=== PATIENT | female | born 1940 | race Caucasian/White ===

== ENCOUNTER → 2017-04-01 | Outpatient (CLI) | payer MEDICARE ==
[2017-04-01 12:27] LABS: EKG EKG PERFORMED
[2017-04-01 12:56] LABS: Anion Gap 12 mmol/L; Blood Urea Nitrogen 14 mg/dL (7-17); Calcium 9.5 mg/dL (8.4-10.2); Carbon Dioxide 24 mmol/L (22-30); Chloride 105 mmol/L (98-107); Glucose 84 mg/dL (74-99); Non-African American GFR(MDRD) >60 (>60 ml/min/1.73 sqM); Potassium 4.4 mmol/L (3.5-5.1); Sodium 141 mmol/L (137-145)
[2017-04-01 13:00] LABS: Appearance,Urine Clear (Clear); Bilirubin,Urine Negative (Negative); Glucose,Urine (UA) Negative (Negative); Ketones,Urine Negative (Negative); Leukocyte Esterase,Urine Small (Negative); Mucus,Urine Rare /hpf; Nitrite,Urine Negative (Negative); Particle Count 717; Protein,Urine Negative (Negative); RBC,Urine 1 /hpf (0-5); Squamous Epithelial Cell,Urine 1 /hpf (0-4); UA Billing (MACRO vs. MICRO) MICRO; Urobilinogen,Urine <2.0 mg/dL (<2.0); WBC,Urine 5 /hpf (0-5)
[2017-04-01 13:03] LABS: Basophils % (A) 0 %; CH 30.2; Eosinophils # (A) 0.1 k/uL (0-0.7); Eosinophils % (A) 1 %; HCT 48.7 % (34.0-46.0); HDW 2.19; HGB 15.7 gm/dL (11.4-16.0); Luc # (Auto) 0.18; Luc % (Auto) 4; Lymphocytes # (A) 1.3 k/uL (1.0-4.8); Lymphocytes % (A) 24 %; MCH 30.4 pg (25.0-35.0); MCHC 32.2 g/dL (31.0-37.0); MCV 94.5 fL (80.0-100.0); Mean Platelet Volume 7.4; Monocytes # (A) 0.4 k/uL (0-1.0); Monocytes % (A) 7 %; Neutrophils # (A) 3.2 k/uL (1.3-7.7); Neutrophils % (A) 63 %; RBC 5.16 m/uL (3.80-5.40); RDW 13.7 % (11.5-15.5); WBC 5.1 k/uL (3.8-10.6); WBC (Perox) 5.01
[2017-04-01 13:09] LABS: INR 1.1 (<1.2); Partial Thromboplastin Time 24.2 sec (22.0-30.0); Prothrombin Time 10.6 sec (9.0-12.0)
--- NOTE | 2017-04-01 13:15 | XR ---
EXAMINATION TYPE: XR chest 2V DATE OF EXAM: 04/01/2017 COMPARISON: NONE HISTORY: Presurgical clearance. TECHNIQUE: Frontal and lateral views of the chest are obtained. FINDINGS: Pectus excavatum deformity creates partial obscuration of the right cardiophrenic angle. B ibasilar atelectasis is noted with no discrete pleural effusion. Pulmonary hyperinflation and flatten ing of the diaphragm relate to a degree of underlying pulmonary emphysema. Mild degenerative changes of the thoracic spine are present. There is no focal air space opacity, pleural effusion, or pneumoth orax seen. The cardiac silhouette size is within normal limits. The osseous structures are intact. IMPRESSION: 1. No focal consolidation. 2. Radiographic sequela of COPD. 3. Interval bibasilar subsegmental atelectasis.
== END | disposition home or self-care (01) ==
LOC: LABPAT 12:08
PROVIDERS: ATTEND Orthopaedic Surgery Orthopaedic Surgery of the Spine
DX: Z01.818 Encounter for other preprocedural examination (principal); Z01.810 Encounter for preprocedural cardiovascular examination; Z01.812 Encounter for preprocedural laboratory examination; M48.00 Spinal stenosis, site unspecified; Z79.01 Long term (current) use of anticoagulants
CPT/HCPCS: 36415; 71020; 80048; 81001; 85025; 85610; 85730; 86850; 86900; 86901; 93005

== ENCOUNTER → 2017-04-30 | Outpatient (CLI) | payer MEDICARE ==
[2017-04-30 10:45] LABS: Blood Urea Nitrogen 18 mg/dL (7-17); Non-African American GFR(MDRD) >60 (>60 ml/min/1.73 sqM)
--- NOTE | 2017-04-30 14:22 | CT ---
EXAMINATION TYPE: CT abdomen pelvis wo/w con DATE OF EXAM: 04/30/2017 COMPARISON: NONE HISTORY: 76-year-old female with Microhematuria TECHNIQUE: Contiguous axial scanning of the abdomen and pelvis before and after administration of 100 ml Omnipaque 300 IV contrast. Delayed images through the kidneys and coronal/sagittal reconstructio ns performed. CT DLP: 3205.70 mGycm Automated exposure control for dose reduction was used. FINDINGS: The heart is upper limits of normal in size without pericardial effusion. Coronary vessel calcificati ons are present and are a marker for coronary artery disease. Strandy areas of atelectasis or scarrin g at the lower lungs. No pleural effusion. Tiny hiatal hernia. Ectatic lower descending thoracic aorta at 2.9 cm. No focal liver lesion or bilia ry ductal dilatation. Portal venous system appears patent. Gallstone measures up to 2.3 cm. No abnormal gallbladder distention. Nodule within the left adrenal gland measures 1.4 cm but shows density on noncontrast series -0.1 Sanjuanita nsfield units compatible with a lipid rich adrenal adenoma. 1.6 cm hypodense lesion centrally in the posterior mid right kidney shows no significant enhancement suggestive of a cyst. Tiny subcentimeter hypodensity anterior left kidney too small for accurate CT c haracterization, probable tiny cyst, axial image 38. No nephrolithiasis or hydronephrosis. Moderate sized umbilical hernia containing omental fat. The hernia measures 7.4 cm wide by 6.6 cm aircraft structural fitter niocaudal by 6.6 cm AP dimension. There is mild fat stranding at the hernia neck with the abdominal w all defect measuring 2.4 cm wide. Spleen and pancreas appear within normal limits. No dilated small bowel, free fluid, or free air. No mesenteric or retroperitoneal lymphadenopathy. Th ere is mid to distal sigmoid diverticulosis without pericolonic inflammatory change. Bladder urine distended. Uterus surgically absent. Suspect visualization of small bilateral ovaries. No abnormal fluid collection in the pelvis or pelvic lymphadenopathy. Bones: Mild degenerative changes of the hips and SI joints. Additional degenerative changes throughout the v isualized spine and posterior fusion hardware at L2-L4 levels. Grade 1 spondylolisthesis from L1 thro ugh L5 levels. IMPRESSION: 1. NO NEPHROLITHIASIS OR HYDRONEPHROSIS. THERE IS A 1.6 CM CYST IN THE CENTRAL RIGHT KIDNEY. ADDITION AL SUBCENTIMETER HYPODENSITY IN THE LEFT KIDNEY IS TOO SMALL FOR ACCURATE CT CHARACTERIZATION BUT ALS O PROBABLY REPRESENTS A CYST. 2. MODERATE SIZED OMENTAL FAT-CONTAINING UMBILICAL HERNIA MEASURING UP TO 7.4 CM. THERE IS SOME STRAN DING AT THE HERNIA NECK THAT COULD REPRESENT MILD INFLAMMATION. CORRELATE FOR ANY PAIN HERE. 3. A 1.4 CM LEFT ADRENAL ADENOMA INCIDENTALLY SEEN. 4. MID TO DISTAL SIGMOID DIVERTICULOSIS AND CHOLELITHIASIS.
== END | disposition home or self-care (01) ==
LOC: RADCTMAIN 09:58
PROVIDERS: ATTEND Urology
DX: N28.1 Cyst of kidney, acquired (principal); K42.9 Umbilical hernia without obstruction or gangrene; K57.30 Diverticulosis of large intestine without perforation or abscess without bleeding; K80.20 Calculus of gallbladder without cholecystitis without obstruction
CPT/HCPCS: 82565; 84520; 74178; 36415; Q9967

== ENCOUNTER → 2018-03-24 | Outpatient (CLI) | payer MEDICARE ==
[2018-03-24 13:18] VITALS: BP 140/64; PULSE 80; RESP 16
--- NOTE | 2018-03-24 13:51 | P.CONS ---
History of Present Illness - Reason for Consult Consult date: 03/24/18 - Chief Complaint Lower back and left leg pain - History of Present Illness This is a pleasant 77-year-old lady with a chronic history of lower back pain and with the more recent left leg pain that started about one and a half years ago with no precipitating events. The pain is mostly on the posterior aspect of her left thigh and goes to the knee level and then she feels numbness in the lateral aspect of her left foot. This pain gets worse by moving and walking around and improves by lying down in bed. She also tried Neurontin previously which helped her pain slightly. She tried multiple injections in the back including transforaminal epidural steroid injection at the L5 level on the left side by Dr. Orta but this had not helped her pain. She denies any bowel or bladder dysfunction she does feel some weakness in her legs but this has been stable with no progression. She also denies any nocturnal pain or weight loss. She tried and failed to respond to physical therapy previously. She did have lumbar laminectomy previously. Review of Systems Eyes: denies blurred vision, denies pain Ears, nose, mouth and throat: Denies as per HPI, Denies ant. neck pain, Denies bleeding gums, Denies dental pain, Denies dysphagia, Denies epistaxis, Denies headache, Denies hoarseness, Denies mouth pain, Denies nasal congestion, Denies nasal discharge, Denies neck fullness/pressure, Denies neck lump, Denies nose pain, Denies odynophagia, Denies post-nasal drip, Denies sinus pain, Denies sinus pressure, Denies swelling in mouth, Denies swelling in throat, Denies sore throat, Denies vertigo, Denies voice changes Cardiovascular: Denies chest pain, Denies shortness of breath Respiratory: Reports wheezing Gastrointestinal: Denies abdominal pain, Denies diarrhea, Denies nausea, Denies vomiting Musculoskeletal: Reports as per HPI Neurological: Reports as per HPI Past Medical History Past Medical History: Asthma, COPD, Eye Disorder, Musculoskeletal Disorder, Osteoarthritis (OA), Skin Disorder Additional Past Medical History / Comment(s): GLAUCOMA, DETACHED RETINA RT EYE, BLIND NOW. ASTHMATIC BRONCHITIS. RASH UNDER BREASTS, ABD. LOW BACK PAIN, SPINAL STENOSIS, LT LEG PAIN W/ NT IN FOOT. VARICOSE VEINS. EDEMA IN BLE. FREQ UTI'S, ON PO AB UNTIL SURGERY. History of Any Multi-Drug Resistant Organisms: None Reported Past Surgical History: Bladder Surgery, Hysterectomy, Joint Replacement Additional Past Surgical History / Comment(s): BRADY TKA. CTR BRADY. EXC CATARACTS. RT EYE RETINAL SURGERY. Past Anesthesia/Blood Transfusion Reactions: No Reported Reaction Past Psychological History: No Psychological Hx Reported Smoking Status: Former smoker Past Alcohol Use History: Rare Additional Past Alcohol Use History / Comment(s): SMOKED 40 YEARS, 1 PPD, QUIT 1997. Past Drug Use History: None Reported - Past Family History Mother Family Medical History: Unable to Obtain Additional Family Medical History / Comment(s): SHE IS ADOPTED. Medications and Allergies Home Medications Medication Instructions Recorded Confirmed Type Budesonide-Formot 160-4.5 Mcg 2 puff INHALATION BID 04/02/17 04/10/17 History [Symbicort 160-4.5 Mcg Inhaler] Carboxymethylcellulose Sodium 1 drop BOTH EYES DAILY 04/02/17 04/10/17 History [Refresh Tears] Cholecalciferol (Vitamin D3) 2,000 unit PO DAILY 04/02/17 04/10/17 History [Vitamin D3] Cranberry Fruit Extract [Cranberry] 500 mg PO BID 04/02/17 04/10/17 History Cyanocobalamin (Vitamin B-12) 1,000 mcg PO DAILY 04/02/17 04/10/17 History [Vitamin B-12] Furosemide [Lasix] 20 mg PO DAILY 04/02/17 04/10/17 History Ipratropium/Albuterol Sulfate 1 puff INHALATION QID 04/02/17 04/10/17 History [Combivent Respimat Inhaler] Ketoconazole 2% Cream [Nizoral 2%] 1 applic TOPICAL DAILY 04/02/17 04/10/17 History Melatonin 5 mg PO HS 04/02/17 04/10/17 History Multivitamins, Thera [Multivitamin 1 tab PO DAILY 04/02/17 04/10/17 History (formulary)] Nabumetone [Relafen] 750 mg PO BID 04/02/17 04/10/17 History Britton-3 Fatty Acids [Britton-3] 1,200 mg PO BID 04/02/17 04/10/17 History Pyridoxine [Vitamin B-6] 50 mg PO DAILY 04/02/17 04/10/17 History Sulfamethox-Tmp 800-160Mg [Bactrim 1 tab PO DAILY 04/02/17 04/10/17 History DS 800-160 mg] Vitamin C/Biotin [Hair, Skin and 1 tab PO BID 04/02/17 04/10/17 History Nails] HYDROcodone/APAP 5-325MG [[place] 5] 1 each PO Q8HR PRN #90 tab 04/11/17 Rx Allergies Allergy/AdvReac Type Severity Reaction Status Date / Time No Known Allergies Allergy Verified 03/24/18 12:57 Physical Exam Vitals: Vital Signs Pulse Resp BP 03/24/18 13:00 80 16 140/64 Intake and Output 03/23/18 03/24/18 03/24/18 22:59 06:59 14:59 Other: Weight 102.965 kg - Constitutional General appearance: morbidly obese - EENT Eyes: PERRLA - Neck Neck: no lymphadenopathy - Respiratory Respiratory: bilateral: CTA - Cardiovascular Rhythm: regular Heart sounds: normal: S1, S2 - Neurologic Neuro exam of the lower extremities showed decreased but symmetrical muscle strength to 4 out of 5 bilaterally for knee flexion and extension ankle flexion and extension hip flexion, adduction and abduction. She also has normal and symmetrical deep tendon reflexes of the lower extremities. She has tenderness in the lumbar paravertebral area bilaterally. She has well-healed scar from her previous back surgery. Straight leg raising test negative bilaterally. Liborio's test negative bilaterally. She has tenderness around the right sacroiliac joint. Internal and external rotation of the hip joints did not elicit any pain. Neurologic: CNII-XII intact - Psychiatric Psychiatric: A&O x's 3, appropriate affect, intact judgment & insight Results Results: The lumbar spine MRI showed multilevel degenerative changes most prominent at L2 -L3 level with moderate to advanced facet degeneration and neural foraminal narrowing at the L2-3 level with encroachment on both L2 nerve roots. Assessment and Plan Plan: This is a pleasant 77-year-old female with the following diagnoses: Morbid obesity Failed back surgery syndrome Facet arthropathy Lumbar spondylosis without myelopathy Neuro foraminal stenosis at L2-L3 level Asthma/emphysema The patient tried and failed multiple injections and Dr. Orta's office and physical therapy, however she received transforaminal epidural steroid injection at the L5 level on the left side which is at a different level than the patient's pain. The patient feels her pain in the back of her left thigh and I think she might benefit from getting lumbar epidural steroid injection at L2-L3 level in the left paramedian approach or even transforaminal epidural steroid injection at this level. The procedure was explained to the patient and her questions were answered. I will resume Neurontin 300 mg 3 times a day I'll give her prescription for 90 pills with 1 refill because .she's been off of it for 4 weeks , I asked her to titrated up gradually starting with 1 pill a day and going up to 3 pills a day. I thank you for the referral.
== END ==
LOC: PNWHC3 12:50
PROVIDERS: ATTEND Anesthesiology
DX: M99.73 Connective tissue and disc stenosis of intervertebral foramina of lumbar region (principal); M47.816 Spondylosis without myelopathy or radiculopathy, lumbar region; M46.96 Unspecified inflammatory spondylopathy, lumbar region; M96.1 Postlaminectomy syndrome, not elsewhere classified; E66.01 Morbid (severe) obesity due to excess calories; J45.909 Unspecified asthma, uncomplicated; J43.9 Emphysema, unspecified; Z79.899 Other long term (current) drug therapy; Z79.891 Long term (current) use of opiate analgesic; Z79.2 Long term (current) use of antibiotics
CPT/HCPCS: 99211

== ENCOUNTER → 2018-04-08 | Day surgery (SDC) | payer MEDICARE ==
[2018-04-02 10:42] VITALS: BMI 38.9
[~2018-04-08] MED LIST: SODIUM CHLORIDE 0.9% 500 ML 500 ML IV SCH
[2018-04-08 07:03] VITALS: TEMP 98.1
--- NOTE | 2018-04-08 08:30 | P.PCN ---
Date of Procedure: 04/08/18 Procedure(s) Performed: PREOPERATIVE DIAGNOSIS: 1- Lumbar spinal stenosis 2-Lumbar spondylosis with Facet arthropathy without myelopathy POSTOPERATIVE DIAGNOSIS: 1-Lumber spinal stenosis 2-Lumbar spondylosis with Facet arthropathy without myelopathy PROCEDURE 1. Lumbar epidural steroid injection under fluoroscopic guidance at the L1-2 level. ( The plan was to do at L2-3 level , but I couldn't do it ,at that level because patient had lumbar laminectomy and fusion at that level ) 2. Lumbar epidurogram. ANESTHESIA: Local with 1% lidocaine 3 ml and , moderate sedation with intravenous Versed 1 mg ,and fentanyle 50 Mcg EBL: Minimal PROCEDURE INDICATION: The patient with low back pain and radiculitis symptoms unresponsive to conservative treatment. Fluoroscopy was used to optimize visualization of the needle placement and to maximize safety. PROCEDURE DESCRIPTION / TECHNIQUE: The patient was seen and identified in the preoperative area. Risks, benefits , complications including but not limited to infections ,bleeding ,allergic reaction to the medications ,nerve damage and not complete pain releife , and alternatives were discussed with the patient. The patient agreed to proceed with the procedure and signed the consent. IV was started, and vital signs were stable. Patient was taken to the OR and time out was completed. The patient was placed in the prone position on procedure table and a pillow was placed under the abdomen to reduce lumbar lordosis. The lumbosacral area was prepped and draped in the usual sterile fashion.ere closely monitored during the procedure. Conscious sedation was used during the procedure to decrease patients anxiety. Vital signs was monitered during the entire procedure. Using anterior-posterior fluoroscopy, the L5-S1 interlaminar space was identified and the skin over this site was marked and then infiltrated with 1% lidocaine subcutaneously. Subsequently, a 20-gauge Tuohy epidural needle was inserted and advanced toward the epidural space using the ``Loss of resistance technique and guided by AP and lateral fluoroscopy. The correct needle position in the epidural space was verified with the injection of 2 mL of the water soluble contrast dye Isovue 200 contrast and observing an excellent epidurogram with the epidural spread of the dye, after negative aspiration for blood and CSF and in the absence of paresthesias. Again after negative aspiration, a 6 ml mixture containing 80 mg of Depo-Medrole and 2 ml of preservative free Normal Saline, and 2 ml of preservative free lidocaine 1% solution was injected and a washout of epidurogram was seen. Needle was withdrawn intact, skin was cleansed, and bandages were applied. COMPLICATIONS: None DISPOSITION / PLANS: The patient was placed in a supine position and transferred to the recovery area in a stable condition for observation. There was no evidence of lower extremity motor or sensory deficit after the procedure. Patient was discharged from the recovery room after meeting discharge criteria. Home discharge instructions were given to the patient by the staff. The patient was reexamined prior to discharge. The patient will schedule a follow up in the clinic in 2-4 weeks. I recommend to do a left-sided transforaminal epidural steroid injection at L2 - 3 levels for the next time.
[2018-04-08 08:40] VITALS: RESP 18
[2018-04-08 08:56] VITALS: BP 155/65; PULSE 80
--- NOTE | 2018-04-08 09:48 | FL ---
EXAMINATION TYPE: FL guided pain mgmt statistic DATE OF EXAM: 04/08/2018 FLUOROSCOPY Fluoroscopy time of 12 seconds was used during lumbar epidural injection. 1 image/s document/s the p [email or web address].
== END ==
LOC: ORPAIN 06:43
PROVIDERS: ATTEND Specialist
DX: G89.29 Other chronic pain (principal); M48.061 Spinal stenosis, lumbar region without neurogenic claudication; M47.26 Other spondylosis with radiculopathy, lumbar region; J44.9 Chronic obstructive pulmonary disease, unspecified; M19.90 Unspecified osteoarthritis, unspecified site; H40.9 Unspecified glaucoma; H54.7 Unspecified visual loss; I83.90 Asymptomatic varicose veins of unspecified lower extremity; Z87.891 Personal history of nicotine dependence; Z79.2 Long term (current) use of antibiotics; Z79.84 Long term (current) use of oral hypoglycemic drugs; Z79.51 Long term (current) use of inhaled steroids; Z79.899 Other long term (current) drug therapy
CPT/HCPCS: 62323; J2250; J1030; J3010; Q9966; 99152

== ENCOUNTER 2018-04-24 09:36 | Day surgery (SDC) | payer MEDICARE ==
[2018-04-21 15:48] VITALS: BMI 38.6
[2018-04-24 10:47] VITALS: RESP 16
--- NOTE | 2018-04-24 11:37 | P.PCN ---
Date of Procedure: 04/24/18 Procedure(s) Performed: PREOPERATIVE DIAGNOSIS:1- Lumbar radiculopathy. 2-lumbar spondylosis with lumbar facet arthropathy. 3-lumbar degenerative disc disease POSTOPERATIVE DIAGNOSIS: Same as preoperative diagnoses. PROCEDURE 1. Transforaminal epidural steroid injection under fluoroscopic guidance at left L2-3 level. 2. Lumbar epidurogram : ANESTHESIA: Local with 1% lidocaine 3 ml , moderate sedation with intravenous Versed 1 mg and fentanyle 50 micrograms EBL: Minimal PROCEDURE INDICATION: The patient with low back pain and radiculopathy symptoms unresponsive to conservative treatment. PROCEDURE DESCRIPTION / TECHNIQUE: The patient was seen and identified in the preoperative area. Risks, benefits , complications, and alternatives were discussed with the patient. The patient agreed to proceed with the procedure and signed the consent. IV was started, and vital signs were stable. Patient was taken to the OR and time out was completed. The patient was placed in the prone position on procedure table and a pillow was placed under the abdomen to reduce lumbar lordosis. The lumbosacral area was prepped and draped in the usual sterile fashion. Critical pause was taken. Vital signs were closely monitored during the procedure. Conscious sedation was used during the procedure to decrease patient s anxiety. Using oblique fluoroscopy, the chin of the ``Poli dog at left L2-3 level was identified, and the skin and deeper tissues just below was localized with 1 % lidocaine. Subsequently, a 22-gauge 5-inch spinal needle was advanced under a tunneled view fluoroscopic guidance just underneath the chin of the ``Poli dog at the Left L2-3 . Under lateral fluoroscopy, the needle was then advanced to the posterior border of the left L2-3 interforaminal space. After negative aspiration of CSF and blood and with no paresthesias, 1 mL Isovue 200 contrast dye was injected excellent epidurogram and outlining of the nerve root Subsequently, 3 mL of block solution containing 40 mg Depo-medrol and 2 mL of Lidocaine 1% was injected.. At the end of the procedure, skin was cleansed, and bandages were applied. COMPLICATIONS:none DISPOSITION / PLANS: The patient was placed in a supine position and transferred to the recovery area in a stable condition for observation. There was no evidence of lower extremity motor or sensory deficit after the procedure. Patient was discharged from the recovery room after meeting discharge criteria. Home discharge instructions were given to the patient by the staff. The patient was reexamined prior to discharge.
[2018-04-24] MEDS ORDERED: IV FLUID CONTINUATION 1,000 ML IV ONE (11:40)
--- NOTE | 2018-04-24 11:56 | FL ---
Fluoroscopy INDICATION: Pain FINDINGS: Fluoroscopy time: 26 seconds. Images obtained: 1. IMPRESSIONS: 1. Documentation of fluoroscopy.
[2018-04-24 12:10] VITALS: BP 124/75; PULSE 87
== END 2018-04-24 12:17 | disposition home or self-care (01) ==
LOC: ORPAIN 09:36
PROVIDERS: ATTEND Specialist
DX: M51.16 Intervertebral disc disorders with radiculopathy, lumbar region (principal); M47.26 Other spondylosis with radiculopathy, lumbar region
CPT/HCPCS: 64483; J2250; J1030; J3010; Q9966; 99152

== ENCOUNTER → 2018-05-21 | Outpatient (CLI) | payer MEDICARE ==
--- NOTE | 2018-05-21 14:59 | P.PAINPG ---
Subjective Progress Note Date: 05/21/18 Principal diagnosis: left lumbar spondylosis. this is a very pleasant 77-year-old woman with a history of intractable low back pain who presents today for reevaluation. She recently underwent an L2-3 transforaminal epidural steroid injection. She says this afforded her mild relief of her pain for approximate 1 week. The pain has now returned. Her pain involves her left buttock and then posterior upper leg down to her knee. She describes as a throbbing pain. She also reports numbness and tingling in the lateral half of her left foot. She has had a transforaminal epidural steroid injections at L5-S1 previously recently did not afford her any benefit. Objective - Vital Signs Vital signs: Intake & Output 05/20/18 05/21/18 05/21/18 18:59 06:59 18:59 Weight 104.326 kg - Exam General: The patient is alert and oriented. Patient is not sedated Patient answers all question appropriately. Cardiac: Heart is regular in rate and rhythm Respiratory: Clear to auscultation. No audible wheezes. Abdomen: Soft nontender nondistended. Musculoskeletal: Strength is normal bilaterally. Sensation is normal bilaterally. Straight leg raise is negative bilaterally. She walks with an antalgic gait. She is unable to assume an erect position. Facet loading maneuvers are very positive on the left side. Neurological: Reflexes are preserved and symmetric bilaterally. Assessment and Plan (1) Spondylosis of lumbar region without myelopathy or radiculopathy Narrative/Plan: Plan of Care 1. Medications:the patient is not being prescribed any medications in our clinic. 2. Interventions:we will schedule the patient for a left lumbar medial branch nerve block at L4, L5, sacral ala and S1. 3. Referrals:patient was referred back to her primary care physician for discussion on weight loss. 4. Testing:none 5. Follow-up: left lumbar medial branch nerve block at L4, L5, sacral ala, S1. Current Visit: Yes Status: Acute Code(s): M47.816 - SPONDYLOSIS W/O MYELOPATHY OR RADICULOPATHY, LUMBAR REGION SNOMED Code(s): 37917467 (2) Spinal stenosis Current Visit: No Status: Acute Code(s): M48.00 - SPINAL STENOSIS, SITE UNSPECIFIED SNOMED Code(s): 17776268 PQRS Measure Charge Sheet Measure #130: Documentation of Current Meds in Medical Chart: Patient's medications documented in chart Measure #226: Tobacco Use: Screen & Cessation Intervention: Pt not a tobacco user Measure #111: Pneumonia Vaccination: Pneumococcal vaccine NOT administered or previously given Measure #47: Advance Care Plan: Advance care planning discussed & documented, pt chose/unable to give Measure #412: Opioid Treatment Agreement: No documentation of signed opioid treatment agreement Measure #408: Opioid Therapy Follow-up Evaluation: Patient had NO f/u eval minimum every 3 months during opioid therapy Measure #317: Preventitive Care & Scrn High Bld Press & F/U: Normal blood pressure, f/u not required Measure #128: Body Mass Index (BMI) Screening & Follow-up: BMI documented ABOVE normal parameters - f/u documented Measure #131: Pain Assessment & Follow-up: Pain positive & plan documented Measure #431: Unhealthy Alcohol Use Preventative Care & Scrn: Patient not identified as an unhealthy alcohol user PQRS Narrative: Smoking Status Former smoker Do You Want the Pneumonia Vaccine Up to Date Vaccine AT THIS TIME? Pain Intensity [Lower Back] 7 Scale Used Numeric (1 - 10) Hx Alcohol Use (MH) No Home Medications: Ambulatory Orders Budesonide-Formot 160-4.5 Mcg [Symbicort 160-4.5 Mcg Inhaler] 2 puff INHALATION BID 04/02/17 Carboxymethylcellulose Sodium [Refresh Tears] 1 drop BOTH EYES DAILY 04/02/17 Cholecalciferol (Vitamin D3) [Vitamin D3] 2,000 unit PO DAILY 04/02/17 Cranberry Fruit Extract [Cranberry] 500 mg PO BID 04/02/17 Cyanocobalamin (Vitamin B-12) [Vitamin B-12] 1,000 mcg PO DAILY 04/02/17 Furosemide [Lasix] 20 mg PO DAILY 04/02/17 Ipratropium/Albuterol Sulfate [Combivent Respimat Inhaler] 1 puff INHALATION QID 04/02/17 Ketoconazole 2% Cream [Nizoral 2%] 1 applic TOPICAL DAILY 04/02/17 Multivitamins, Thera [Multivitamin (formulary)] 1 tab PO DAILY 04/02/17 Nabumetone [Relafen] 750 mg PO BID 04/02/17 Williams-3 Fatty Acids [Williams-3] 1,200 mg PO BID 04/02/17 Pyridoxine [Vitamin B-6] 50 mg PO DAILY 04/02/17 Vitamin C/Biotin [Hair, Skin and Nails] 1 tab PO BID 04/02/17 Eye Lubricant Combination No.1 [Freshkote] 1 applic BOTH EYES DIRECTED Fluticasone Propionate [Flovent Diskus] 50 mcg INHALATION DIRECTED 03/24/18 Gabapentin [Neurontin] 300 mg PO TID 03/24/18 Controlled Substance Measures - Controlled Substance Measures Is patient prescribed a controlled substance at discharge?: No
== END ==
LOC: PNWHC3 14:23
PROVIDERS: ATTEND Pain Medicine Pain Medicine
DX: M48.00 Spinal stenosis, site unspecified (principal); M47.816 Spondylosis without myelopathy or radiculopathy, lumbar region; Z87.891 Personal history of nicotine dependence; Z79.899 Other long term (current) drug therapy
CPT/HCPCS: 99211

== ENCOUNTER 2018-06-04 08:36 | Day surgery (SDC) | payer MEDICARE ==
[2018-06-02 15:21] VITALS: BMI 39.4
[2018-06-04 09:22] VITALS: TEMP 97.6
--- NOTE | 2018-06-04 09:39 | P.PCN ---
Date of Procedure: 06/04/18 Preoperative Diagnosis: Lumbar spondylosis without myelopathy Postoperative Diagnosis: Same Procedure(s) Performed: Left lumbar medial branch block at L4 5 and L5-S1 Anesthesia: none Description of Procedure: Surgeon: Bev Monet MD. Procedure: Left lumbar medial branch block L4 5 L5-S1 no sedation The patient was seen and examined in the [facility]. Procedure risks and benefits were fully reviewed with the patient. The patient understands this is a diagnostic if local only is used, as will be the case today. The goal of the procedure is to inject medication into the medial branch or small nerves that go into the facet joints. In this way, we can hopefully identify which of these joints, if any, may be contributing to their pain. Informed consent for procedure was obtained. The patient was taken into the office fluoroscopy procedure room and placed prone on the table. A pillow was placed under the abdomen to reduce lumbar lordosis. Vital signs were closely monitored during the procedure. The skin over the area was prepped with Betadine X 3 and draped in usual sterile manner. Sterile technique was observed throughout procedure. Under biplanar fluoroscopic guidance, the target injection area of the L4, L5 and sacral ala bilateral were targeted. A 25 gauge 31/2 inch spinal needle was then placed at the most medial and superior aspect of the transverse process near the "eye of the Poli dog". Aspiration for blood was negative. 1 cc of 0.5% marcaine was injected into the targeted areas separately. Grover were withdrawn intact. No complications were noted during the procedure. The patient tolerated the procedure well. The patient was placed in supine position and transferred to the recovery area for observation and remained stable until discharged home. Home discharge instructions were given to the patient by the staff. The patient will schedule a follow up as directed if she has good relief from the test injection will repeat a second medial branch block. We discussed patient's potential for rhizotomy in the future.
[2018-06-04 10:19] VITALS: BP 137/84; PULSE 95; RESP 16
--- NOTE | 2018-06-04 10:49 | FL ---
EXAMINATION TYPE: FL guided pain mgmt statistic DATE OF EXAM: 06/04/2018 COMPARISON: NONE HISTORY: Fluoroscopy documentation for a left facet block TECHNIQUE: Fluoroscopy. FINDINGS/IMPRESSION: Fluoroscopic guidance was provided during procedure performed by Dr. Monet. A total of 7 seconds of fluoroscopic time was utilized during the procedure and 2 spot images was acq uired demonstrating localization of the lumbar spine.
== END 2018-06-04 10:19 | disposition home or self-care (01) ==
LOC: ORPAIN 08:36
PROVIDERS: ATTEND Hospitalist
DX: M47.816 Spondylosis without myelopathy or radiculopathy, lumbar region (principal)
CPT/HCPCS: 64493; 64494

== ENCOUNTER → 2018-08-12 | Outpatient (CLI) | payer MEDICARE ==
[2018-08-12 11:05] VITALS: BP 138/84; PULSE 89; RESP 16
--- NOTE | 2018-08-12 11:35 | P.PAINPG ---
Subjective Progress Note Date: 08/12/18 this is a very pleasant 77-year-old woman with a history of intractable low back pain who presents today for reevaluation. She recently underwent an L2-3 transforaminal epidural steroid injection. She says this afforded her mild relief of her pain for approximate 1 week. The pain has now returned. Her pain involves her left buttock and then posterior upper leg down to her knee. And later on ,we have Done Diagnostic Medial Branch Block Lumbar Area and she got excellent pain relief for short-term, the pain dropped from 4/10- to 0/10 Physical Examinations : -Constitutiona : Cooperative , not in acute distress . -HEENT : nech ; supple , no Lymphadenopathy , normal thyroid size . eyes : no ptosis , no icterus, no photophobia . - musculoskeltal : Lumber spine moter stegnth lower extremities ,thigh and legs 5/5 Right side , 5/5 Left side deep tendon reflexes : normal Knee Jerk , normal ankle Jerk positive lumber facet Loading Test Assessment and plan= lumbar spondylosis with lumbar facet arthropathy without myelopathy Lumbar spinal stenosis. Patient had no benefit from previous lumbar epidural steroid injection . Patient had a good result after the first diagnostic medial branch block lumbar area on the left side. Patient will be scheduled to have another diagnostic medial branch block left side L3 to S1 Objective - Vital Signs Vital signs: Vital Signs Temp Pulse 89 08/12/18 10:55 Resp 16 08/12/18 10:55 BP 138/84 08/12/18 10:55 Pulse Ox 92 L 08/12/18 10:55 Intake & Output 08/11/18 08/12/18 08/12/18 18:59 06:59 18:59 Weight 104.326 kg PQRS Measure Charge Sheet Measure #130: Documentation of Current Meds in Medical Chart: Patient's medications documented in chart Measure #226: Tobacco Use: Screen & Cessation Intervention: Pt not a tobacco user Measure #111: Pneumonia Vaccination: Pneumococcal vaccine administered or previously received Measure #47: Advance Care Plan: Advance care planning discussed & documented, pt chose/unable to give Measure #412: Opioid Treatment Agreement: No documentation of signed opioid treatment agreement Measure #408: Opioid Therapy Follow-up Evaluation: Patient had NO f/u eval minimum every 3 months during opioid therapy Measure #317: Preventitive Care & Scrn High Bld Press & F/U: Normal blood pressure, f/u not required Measure #128: Body Mass Index (BMI) Screening & Follow-up: BMI documented ABOVE normal parameters - f/u documented Measure #131: Pain Assessment & Follow-up: Pain positive & plan documented, Follow-up scheduled Measure #431: Unhealthy Alcohol Use Preventative Care & Scrn: Patient not identified as an unhealthy alcohol user PQRS Narrative: Smoking Status Former smoker Do You Want the Pneumonia Vaccine Up to Date Vaccine AT THIS TIME? Blood Pressure 138/84 Pain Intensity [Left Lower 2 Buttock] Scale Used Numeric (1 - 10) Hx Alcohol Use (MH) No Home Medications: Ambulatory Orders Budesonide-Formot 160-4.5 Mcg [Symbicort 160-4.5 Mcg Inhaler] 2 puff INHALATION BID 04/02/17 Carboxymethylcellulose Sodium [Refresh Tears] 1 drop BOTH EYES DAILY 04/02/17 Cholecalciferol (Vitamin D3) [Vitamin D3] 2,000 unit PO DAILY 04/02/17 Cranberry Fruit Extract [Cranberry] 500 mg PO BID 04/02/17 Cyanocobalamin (Vitamin B-12) [Vitamin B-12] 1,000 mcg PO DAILY 04/02/17 Furosemide [Lasix] 20 mg PO DAILY 04/02/17 Ipratropium/Albuterol Sulfate [Combivent Respimat Inhaler] 1 puff INHALATION QID 04/02/17 Ketoconazole 2% Cream [Nizoral 2%] 1 applic TOPICAL DAILY 04/02/17 Multivitamins, Thera [Multivitamin (formulary)] 1 tab PO DAILY 04/02/17 Nabumetone [Relafen] 750 mg PO BID 04/02/17 Neffs-3 Fatty Acids [Neffs-3] 1,200 mg PO BID 04/02/17 Pyridoxine [Vitamin B-6] 50 mg PO DAILY 04/02/17 Vitamin C/Biotin [Hair, Skin and Nails] 1 tab PO BID 04/02/17 Eye Lubricant Combination No.1 [Freshkote] 1 applic BOTH EYES DIRECTED Fluticasone Propionate [Flovent Diskus] 50 mcg INHALATION DIRECTED 03/24/18 Gabapentin [Neurontin] 300 mg PO TID 03/24/18 Controlled Substance Measures - Controlled Substance Measures Is patient prescribed a controlled substance at discharge?: No When asked, does pt state using other controlled substances?: No If prescribed controlled substance>3 days was MAPS reviewed?: No If Rx opioid, was Start Talking consent form obtained?: No If opioid is for acute pain is fill amount 7 days or less?: No Was information provided regarding opioid addiction?: No
== END | disposition home or self-care (01) ==
LOC: PNWHC3 10:40
PROVIDERS: ATTEND Specialist
DX: M48.061 Spinal stenosis, lumbar region without neurogenic claudication (principal); M47.816 Spondylosis without myelopathy or radiculopathy, lumbar region; M46.86 Other specified inflammatory spondylopathies, lumbar region; Z87.891 Personal history of nicotine dependence; Z79.899 Other long term (current) drug therapy
CPT/HCPCS: 99211

== ENCOUNTER 2018-08-26 07:19 | Day surgery (SDC) | payer MEDICARE ==
[2018-08-21 10:45] VITALS: BMI 39.4
[2018-08-26 08:01] VITALS: TEMP 97.9
[2018-08-26] MEDS ORDERED: LACTATED RINGERS 1,000 ML IV ONE (08:01)
--- NOTE | 2018-08-26 08:36 | P.PCN ---
Date of Procedure: 08/26/18 Surgeon: Rocky Webster Pathology: none sent Condition: stable Disposition: PACU Description of Procedure: PREOPERATIVE DIAGNOSIS : 1- Lumbar spondylosis with Facet Arthropathy without myelopathy . 2- Lumber degenerative disc disease3-PLPS POSTOPERATIVE DIAGNOSIS: 1- Lumbar spondylosis with Facet Arthropathy without myelopathy . 2- Lumber degenerative disc disease3-PLPS PROCEDURE: Diagnostic left L3 -4 , L4 -5 , and L5-S1 medial branch block under fluoroscopy ANESTHESIA: Local with 1% lidocaine; IV moderate conscious sedation with Versed 1 mg . EBL: Negligible COMPLICATION: None. PROCEDURE INDICATION: Chronic low back pain secondary to Facet arthropathy unresponsive to conservative treatment. PROCEDURE DESCRIPTION: the patient was seen and identified in the preop holding area , risks and benefits and possible complications of the procedure and alternatives were discussed with the patient, and the patient agreed to proceed with the procedure and signed the consent. IV was started and vital signs monitored during the procedure and fluoroscopy was used to maximize the benefit and accuracy of the needle placement, sedation was given to decrease patient anxiety, patient was taken to the procedure room and placed in prone position vital signs monitored. The patient was brought into the procedure room and placed in prone position. Skin was prepped with Chloraprep and draped in a sterile manner. Lidocaine 1% was used to numb the skin up at the target points that were chosen as follows: at the L5-S1 level which corresponds to the dorsal ramus of L5 the target points were at the superior medial aspect of the sacral ala on each side of the spine on the AP view of fluoroscopy, and for theL3 and L4 medial branches the target points were the connection between the transverse process and the superior to go process of L4 and L5 respectively on the oblique views of fluoroscopy. I used 22-gauge 3-1/2 inch Quincke spinal needles for this procedure and after contacting bone at the target points mentioned above I injected 1 mL of a mixture of Kenalog 40 mg +5 MLS of Marcaine 0.5% PF . Patient tolerated procedure well. At the end of the procedure the needles removed and a bandage applied after the skin was cleaned the cleaning solution. patient was then taken to the recovery room in stable condition and monitored in the recovery room for 20-30 minutes and discharged home in stable condition after discharge criteria met .
[2018-08-26] MEDS ORDERED: IV FLUID CONTINUATION 1,000 ML IV ONE (08:43)
[2018-08-26 09:04] VITALS: BP 126/78; PULSE 86; RESP 16
--- NOTE | 2018-08-26 09:05 | FL ---
EXAMINATION TYPE: FL guided pain mgmt statistic DATE OF EXAM: 08/26/2018 HISTORY: Flouroscopy time 4 seconds of fluoroscopy provided. IMPRESSION: 1. Fluoroscopy time.
== END 2018-08-26 09:17 | disposition home or self-care (01) ==
LOC: ORPAIN 07:19
PROVIDERS: ATTEND Anesthesiology
DX: G89.29 Other chronic pain (principal); M47.816 Spondylosis without myelopathy or radiculopathy, lumbar region; M51.36 Other intervertebral disc degeneration, lumbar region; G97.1 Other reaction to spinal and lumbar puncture; M48.061 Spinal stenosis, lumbar region without neurogenic claudication; Z79.51 Long term (current) use of inhaled steroids; Z79.899 Other long term (current) drug therapy
CPT/HCPCS: 64493; 64494; 64495; J2250; J3301

== ENCOUNTER → 2018-09-10 | Outpatient (CLI) | payer MEDICARE ==
[2018-09-10 14:44] VITALS: BP 137/72; PULSE 80; RESP 16
--- NOTE | 2018-09-10 15:07 | P.PN ---
Subjective Progress Note Date: 09/10/18 This is a 77-year-old lady with history of lower back pain with radiation to the left lower extremity. The patient states that her left leg is more painful than her lower back and that the first diagnostic medial branch block that she had in the lumbar spine helped her leg pain however the second one did not. The pain radiates down to the ankle and she feels numbness on the lateral aspect of her left foot. The patient denies taking any anticoagulants and she denies any history of diabetes. Today, pt denies new-onset weakness, bowel/bladder incontinence, or any other signs or symptoms of cauda equina syndrome. There are no signs of acute intoxication, and no indications of medication diversion or overuse. In addition to above, 13-point review of systems is also negative for chest pain, shortness of breath, changes in vision, changes in hearing, new onset weakness, abdominal pain, diarrhea, extreme fatigue, malaise, fever, skin changes, homicidal or suicidal ideation, or bowel or bladder incontinence. Vital Signs: Reviewed in EMR Gen: AAOx3, NAD HEENT: PERRLA,hearing grossly normal Pulm: resp unlabored Neck: supple, trachea midline Neuro exam of the lower extremities: Decreased but symmetrical knee reflexes, absent left ankle reflex. Decreased muscle strength to 4 out of 5 bilaterally. Straight leg raising test: Liborio's test: Range of motion of the lumbar spine: Facet loading test: Tenderness in the paravertebral musculature: The lumbar area bilaterally Neuro: CN II-XII grossly intact, Imaging: Reviewed in EMR/chart Assessment: Left lumbar radiculopathy Lumbar postlaminectomy pain syndrome Facet arthropathy without myelopathy Morbid obesity Plan: 1. Explanation: Opioid and psychological risk scores were reviewed. Diagnoses, prognoses, and multiple treatment options including but not limited to physical therapy, interventional therapies, adjuvant medical therapies, narcotic medication therapies, and surgery were discussed with the patient and all questions were answered to the patient's satisfaction. 2. Opioid agreement: The patient does not use opioids. 3. Counseling: The patient was counseled extensively on SMOKING CESSATION, BODY MASS INDEX, EXERCISE. Specifically, the patient was instructed regarding the importance of smoking cessation, obesity, and exercise in the context of both chronic pain and overall health. 4. Procedures: Schedule for transforaminal epidural steroid injection at the L 5-S1 and L4 5 levels under fluoroscopic guidance on the left side 5. Consultations: None 6. Investigations: None 7. Medications: Starting Neurontin 300 mg at night with escalating dosages 8. Disposition: 9. Maps were reviewed and were appropriate. PQRS measures: 1-Patient's medications are documented in the chart. 2-Tobacco use is negative, counseling given 3-Patient has had a pneumococcal vaccine. 4-Advanced care planning discussed, patient unable to give 5-Opioid contract signed with the patient. 6-Pain positive, follow-up visit or procedure scheduled 7-Patient's blood pressure measured and documented above/ normal limits. The patient will follow up with his primary care physician. 8-Patient's weight was measured, and body mass index ABOVE the normal limits, and counseling was done. Patient instructed to follow up with PCP. 9-Patient WAS NOT identified as an unhealthy alcohol user. Objective - Vital Signs Vital signs: Vital Signs Temp Pulse 80 09/10/18 14:37 Resp 16 09/10/18 14:37 BP 137/72 09/10/18 14:37 Pulse Ox 91 L 09/10/18 14:37 Intake & Output 09/09/18 09/10/18 09/10/18 18:59 06:59 18:59 Weight 104.326 kg
== END | disposition home or self-care (01) ==
LOC: PNWHC3 14:23
PROVIDERS: ATTEND Anesthesiology
DX: M46.96 Unspecified inflammatory spondylopathy, lumbar region (principal); M54.16 Radiculopathy, lumbar region; M96.1 Postlaminectomy syndrome, not elsewhere classified; E66.01 Morbid (severe) obesity due to excess calories; Z68.41 Body mass index [BMI] 40.0-44.9, adult
CPT/HCPCS: 99211

== ENCOUNTER 2018-09-24 06:17 | Day surgery (SDC) | payer MEDICARE ==
[2018-09-22 10:31] VITALS: BMI 43.4
[~2018-09-24 06:17] MED LIST changes: +LACTATED RINGERS 1,000 ML IV SCH; -SODIUM CHLORIDE 0.9% 500 ML 500 ML IV SCH
[2018-09-24 07:05] VITALS: TEMP 97.6
[2018-09-24 07:09] LABS: Glucose,Whole Blood 92 mg/dL (75-99)
--- NOTE | 2018-09-24 07:54 | P.PCN ---
Date of Procedure: 09/24/18 Surgeon: Rocky Webster Pathology: none sent Condition: stable Disposition: PACU Description of Procedure: Date of the procedure: PREOPERATIVE DIAGNOSIS:Left Lumbar radiculopathy,PLPS POSTOPERATIVE DIAGNOSIS: Left Lumbar radiculopathy,PLPS PROCEDURE 1. Transforaminal epidural steroid injection under fluoroscopic guidance at left L4-5 and left L5-S1- level. 2. Lumbar epidurogram. SURGEON: Rocky Webster MD [employer] BOSS: ANESTHESIA: Local with 1% lidocaine; IV sedation with Versed and fentanyl mg. EBL: Minimal PROCEDURE INDICATION: The patient with low back pain and radiculopathy symptoms unresponsive to conservative treatment. PROCEDURE DESCRIPTION / TECHNIQUE: The patient was seen and identified in the preoperative area. Risks, benefits, complications, and alternatives were discussed with the patient. The patient agreed to proceed with the procedure and signed the consent. IV was started, and vital signs were stable. Patient was taken to the OR and time out was completed. The patient was placed in the prone position on procedure table and a pillow was placed under the abdomen to reduce lumbar lordosis. The lumbosacral area was prepped and draped in the usual sterile fashion. Critical pause was taken. Vital signs were closely monitored during the procedure. Conscious sedation was used during the procedure to decrease patients anxiety. The vertebral body of the lumbar vertebra L4 was squared off by tilting the C-arm cephalad then the C-arm was tilted to the oblique position and the target point was at the 6 o'clock position of the pedicle of L4 thn skin and deeper tissues just below were localized with 1% lidocaine. Subsequently, a 22- gauge 3.5-inch spinal needle was advanced under a tunneled view fluoroscopic guidance just underneath the chin of the Poli dog at the left L4-5 level. Under lateral fluoroscopy, the needle was then advanced to the middle of the upper one third of the foramen between( L4-5). After negative aspiration of CSF and blood and with no paresthesias, 1 mL o fomnipaque contrast dye was injected excellent epidurogram and outlining of the L4 nerve root was identified. Subsequently, 2 mL of block solution containing 40 mg of Kenalog and 1 mL of Ropivacaine 0.25% was injected. Needle was removed and the same . At the end of the procedure, skin was cleansed, and bandages were applied. The procedure was repeated in the same manner on the L5-S1 level the target the L5 nerve root on the left side. Another 40 mg of Kenalog was given. COMPLICATIONS: None COMMENTS: DISPOSITION / PLANS: The patient was placed in a supine position and transferred to the recovery area in a stable condition for observation. There was no evidence of lower extremity motor or sensory deficit after the procedure. Patient was discharged from the recovery room after meeting discharge criteria. Home discharge instructions were given to the patient by the staff.
[2018-09-24] MEDS ORDERED: LACTATED RINGERS 1,000 ML IV ONE (07:57)
[2018-09-24 08:12] VITALS: BP 129/73; PULSE 78; RESP 18
--- NOTE | 2018-09-24 08:47 | FL ---
EXAMINATION TYPE: FL guided pain mgmt statistic DATE OF EXAM: 09/24/2018 CLINICAL HISTORY: Low back pain. TECHNIQUE: Fluoroscopy. COMPARISON: None. FINDINGS: Fluoroscopic guidance was provided during pain relief procedure performed by Dr. Webster . A total of 1.03 seconds of fluoroscopic time was utilized during the procedure and for spot images are acquired. Images acquired shows needle localization in the lumbar spine with contrast injection, surgical hardware is also present. IMPRESSION: As Above.
== END 2018-09-24 08:30 | disposition home or self-care (01) ==
LOC: ORPAIN 06:17
PROVIDERS: ATTEND Anesthesiology
DX: M96.1 Postlaminectomy syndrome, not elsewhere classified (principal); M47.26 Other spondylosis with radiculopathy, lumbar region; E66.01 Morbid (severe) obesity due to excess calories; Z68.41 Body mass index [BMI] 40.0-44.9, adult
CPT/HCPCS: 64483; 64484; J2250; J3301; Q9966; 99152; 99153

== ENCOUNTER 2018-10-08 07:12 | Day surgery (SDC) | payer MEDICARE ==
[2018-10-07 09:48] VITALS: BMI 43.4
[2018-10-08 07:38] VITALS: TEMP 97.8
[2018-10-08] MEDS ORDERED: LACTATED RINGERS 1,000 ML IV ONE (07:38)
[2018-10-08] MEDS ORDERED: LIDOCAINE 1% 20 ML VIAL (10MG/ML) FOR IV START INTRADERMA ONE (07:38)
--- NOTE | 2018-10-08 08:34 | P.OP ---
Date of Procedure: 10/08/18 Surgeon: Kasi Husain Description of Procedure: DESCRIPTION OF PROCEDURE(S): PREOPERATIVE DIAGNOSIS: Lumbar radiculopathy POSTOPERATIVE DIAGNOSIS: Lumbar radiculopathy PROCEDURE 1. Transforaminal epidural steroid injection under fluoroscopic guidance left L4, left L5 2. Lumbar epidurogram ANESTHESIA: Local with 1% lidocaine 3 ml ; IV sedation with Versed 2 mg and fentanyl 100 micrograms. PROCEDURE INDICATION: The patient with low back pain and radiculopathy symptoms unresponsive to conservative treatment. PROCEDURE DESCRIPTION / TECHNIQUE: The patient was seen and identified in the preoperative area. Risks, benefits, complications, and alternatives were discussed with the patient. The patient agreed to proceed with the procedure and signed the consent. IV was started, and vital signs were stable. Patient was taken to the OR and time out was completed. The patient was placed in the prone position on procedure table and a pillow was placed under the abdomen to reduce lumbar lordosis. The lumbosacral area was prepped and draped in the usual sterile fashion. Vital signs were closely monitored during the procedure. Conscious sedation was used. Using oblique fluoroscopy, the chin of the ``Poli dog and the skin and deeper tissues just below was localized with 1% lidocaine. Subsequently, a 22- gauge 3.5-inch spinal needle was advanced under a tunneled view fluoroscopic guidance just underneath the chin of the ``Poli dog . Under lateral fluoroscopy, the needle was then advanced to the posterior border of the foramen. After negative aspiration of CSF and blood, a solution containing 10 mg of Decadron and 1/2 mL of 0.5% bupivacaine was injected at each level.. The needle was withdrawn intact. At the end of the procedure, skin was cleansed, and bandages were applied. COMPLICATIONS: None COMMENTS: DISPOSITION / PLANS: The patient was placed in a supine position and transferred to the recovery area in a stable condition for observation. There was no evidence of lower extremity motor or sensory deficit after the procedure. Ezequiel brizuela was discharged from the recovery room after meeting discharge criteria. Home discharge instructions were given to the patient by the staff. The patient was reexamined prior to discharge. She will follow-up in the clinic in the near future for reevaluation. This is her second lumbar transforaminal epidural steroid injection in this series.
[2018-10-08] MEDS ORDERED: IV FLUID CONTINUATION 1,000 ML IV ONE (08:35)
[2018-10-08 08:44] VITALS: BP 120/74; PULSE 72; RESP 16
--- NOTE | 2018-10-08 13:19 | FL ---
Fluoroscopy INDICATION: Pain FINDINGS: Fluoroscopy time: 8 seconds. Images obtained: 2. IMPRESSIONS: 1. Documentation of fluoroscopy.
== END 2018-10-08 09:04 | disposition home or self-care (01) ==
LOC: ORPAIN 07:12
PROVIDERS: ATTEND Pain Medicine Pain Medicine
DX: M54.16 Radiculopathy, lumbar region (principal)
CPT/HCPCS: 64483; 64484; J2250; J1100; J3010; 99152

== ENCOUNTER → 2018-11-05 | Outpatient (CLI) | payer MEDICARE ==
[2018-11-05 14:15] VITALS: BP 140/77; PULSE 82; RESP 18
--- NOTE | 2018-11-05 14:36 | P.PN ---
Subjective Progress Note Date: 11/05/18 This is a 78 years old female with a chronic history of severe low back pain, radiation to the left lower extremity, she is diagnosed with lumbar radiculopathy, postlaminectomy pain syndrome, recently we've done a left-sided transforaminal epidural steroid injection at L4 5 and L5-S1 she gets excellent pain relief, until yesterday, and currently she is having low back pain with radiation to the left lower extremity associated with numbness and tingling sensation, but pain interfering with her ability to ambulate, she denies any motor or sensory deficits denies any change in the bowel movement or urination and no fever or night sweats Objective - Vital Signs Vital signs: Vital Signs Temp Pulse 82 11/05/18 14:03 Resp 18 11/05/18 14:03 BP 140/77 11/05/18 14:03 Pulse Ox 97 11/05/18 14:03 Intake & Output 11/04/18 11/05/18 11/05/18 18:59 06:59 18:59 Weight 106.594 kg - Exam Physical Examinations : -Constitutiona : Cooperative , not in acute distress . -HEENT : nech ; supple , no Lymphadenopathy , normal thyroid size . eyes : no ptosis , no icterus, no photophobia . ENT : normal of hearing , normal oropharynx , no Thrush . - Respiratory : Chest clear to auscultations Bilaterally , no wheezing , no Rhonchi . - Cardiovascula : regular rate and rhythem , S1 , S2 , no S3 , no S4. - Gastrointestina : abdomen soft no tenderness , bowel sounds , no organomegally . - Genitourinary : Defferred . - neurologic : Cranial nerve II to XII intact , no focal neurological deffecit . -psychatric : alert , oriented X 3 , appropriate affect , intact judgment and insight . -Lymphatic : no Lymphadenopathy . - musculoskeltal : Lumber spine moter stegnth lower extremities ,thigh and legs 5/5 Right side , 5/5 Left side deep tendon reflexes : normal Knee Jerk , normal ankle Jerk positive lumber facet Loading Test Range of motion of the lumbar spine Flexion 30 degrees, extension 10 degrees strait leg raising test , positive at 30 degree Fabere test positive RT and positive LT . Sever tenderness over the Sacroiliac joint on the Left side only Gaenslen test positive on the left side Seated flexion test positive on the left side only. 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 Patient could benefit from repeat left-sided transforaminal epidural steroid injection at L4 5 , and L5-S1 under fluoroscopy guidance In the future if she continued to have severe left buttock pain she could be good candidate for left-sided sacroiliac joint steroid injection prescription refill for Neurontin 300 mg twice a day dispense 60 with 2 refills given - PQRS measures = - Patient's medications are documented in the chart. -Tobacco use is negative and counseling.Given. -Patient's has not received pneumococcal vaccine. -Advanced care planning discussed, patient not eligible. -Opiate contract signed. -Pain positive and follow-up visit/procedure is scheduled. -Patient's blood pressure measured [ 140/77 ] , and documented in the record ,and patient will follow up with the primary care. -Patient's weight was measured and body mass index [ 44.4 ] above the normal limits and counseling was done. and patient instructed to follow-up with the primary care physician. -Patient was not identified as an unhealthy alcohol user Time with Patient: Less than 30
== END ==
LOC: PNWHC3 13:58
PROVIDERS: ATTEND Specialist
DX: M54.16 Radiculopathy, lumbar region (principal); M46.1 Sacroiliitis, not elsewhere classified; M96.1 Postlaminectomy syndrome, not elsewhere classified; Z79.899 Other long term (current) drug therapy; Z79.891 Long term (current) use of opiate analgesic
CPT/HCPCS: 99211

== ENCOUNTER 2018-12-01 07:30 | Day surgery (SDC) | payer MEDICARE ==
[2018-11-28 11:07] VITALS: BMI 43.4
[2018-12-01] MEDS ORDERED: LACTATED RINGERS 1,000 ML IV SCH (08:00)
[2018-12-01] MEDS ORDERED: LIDOCAINE 1% 20 ML VIAL (10MG/ML) FOR IV START INTRADERMA ONE (08:22)
[2018-12-01 08:33] VITALS: RESP 16; TEMP 97.7
[2018-12-01] MEDS ORDERED: IV FLUID CONTINUATION 650 ML IV ONE (09:32)
--- NOTE | 2018-12-01 09:33 | P.PCN ---
Date of Procedure: 12/01/18 Surgeon: Rocky Webster Pathology: none sent Condition: stable Disposition: PACU Description of Procedure: PREOPERATIVE DIAGNOSIS: Left Lumbar radiculopathy.PLPS POSTOPERATIVE DIAGNOSIS: Left Lumbar radiculopathy ,PLPS PROCEDURE 1. Transforaminal epidural steroid injection under fluoroscopic guidance at the left L4-5 and L5-S1 level. 2. Lumbar epidurogram. SURGEON: Rocky Webster MD ANESTHESIA: Local with 1% lidocaine; IV sedation with Versed and fentanyl EBL: Minimal PROCEDURE INDICATION: The patient with low back pain and radiculopathy symptoms unresponsive to conservative treatment. PROCEDURE DESCRIPTION / TECHNIQUE: The patient was seen and identified in the preoperative area. Risks, benefits, complications, and alternatives were discussed with the patient. The patient agreed to proceed with the procedure and signed the consent. IV was started, and vital signs were stable. Patient was taken to the OR and time out was completed. The patient was placed in the prone position on procedure table and a pillow was placed under the abdomen to reduce lumbar lordosis. The lumbosacral area was prepped and draped in the usual sterile fashion. Critical pause was taken. Vital signs were closely monitored during the procedure. Conscious sedation was used during the procedure to decrease patients anxiety. The vertebral body of the lumbar vertebra L4, then L5 was squared off by tilting the C-arm then the C-arm was tilted to the oblique position and the target point was at the 6 o'clock position of the pedicle of L4, then L5 skin and deeper tissues just below were localized with 1% lidocaine. Subsequently, a 22-gauge 5 inch spinal needle was advanced under a tunneled view fluoroscopic guidance just underneath the chin of the Poli dog at the left L4, then L5 pedicle. Due to the patient's previous back surgery with fusion and bony buildup I had difficulty getting into the L4 5 and L5-S1 foramens and the needle was positioned more laterally and caudally than usual. Under lateral fluoroscopy, the needle was then advanced to the middle of the foramen between(L4-5, then L5-S1 ). After negative aspiration of CSF and blood and with no paresthesias, 1 mL o fomnipaque contrast dye was injected excellent epidurogram and outlining of the L-or (S1) nerve root was identified. Subsequently, 2 mL of block solution containing 10 mg of Decadron and 1 mL of Lidocaine 1% was injected at each level . Needle was removed and the same . At the end of the procedure, skin was cleansed, and bandages were applied. COMPLICATIONS: None COMMENTS: DISPOSITION / PLANS: The patient was placed in a supine position and transferred to the recovery area in a stable condition for observation. There was no evidence of lower extremity motor or sensory deficit after the procedure. Patient was discharged from the recovery room after meeting discharge criteria. Home discharge instructions were given to the patient by the staff.
--- NOTE | 2018-12-01 09:52 | FL ---
EXAMINATION TYPE: FL guided pain mgmt statistic DATE OF EXAM: 12/01/2018 CLINICAL HISTORY: Low back pain. TECHNIQUE: Fluoroscopy. COMPARISON: None. FINDINGS: Fluoroscopic guidance was provided during pain relief procedure performed by Dr. Webster . A total of 55 seconds of fluoroscopic time was utilized during the procedure and 4 spot images are acquired. Images acquired shows needle localization at right aspect lower lumbar spine from posterio r approach, surgical changes noted superior to this. IMPRESSION: As Above.
[2018-12-01 09:57] VITALS: BP 133/84; PULSE 79
== END 2018-12-01 10:05 | disposition home or self-care (01) ==
LOC: ORPAIN 07:30
PROVIDERS: ATTEND Anesthesiology
DX: M54.16 Radiculopathy, lumbar region (principal); M96.1 Postlaminectomy syndrome, not elsewhere classified; M46.1 Sacroiliitis, not elsewhere classified; E66.01 Morbid (severe) obesity due to excess calories; Z68.41 Body mass index [BMI] 40.0-44.9, adult
CPT/HCPCS: 64483; 64484; J2250; J1100; J2001; J3010; 99152

== ENCOUNTER → 2018-12-25 | Day surgery (SDC) | payer MEDICARE ==
[2018-12-24 09:13] VITALS: BMI 43.6
[~2018-12-25] MED LIST changes: +LACTATED RINGERS 1,000 ML IV ONE; -LACTATED RINGERS 1,000 ML IV SCH; +LIDOCAINE 1% 20 ML VIAL (10MG/ML) FOR IV START INTRADERMA ONE
[2018-12-25 07:22] VITALS: BP 136/83; PULSE 79; RESP 16; TEMP 97.7
--- NOTE | 2018-12-25 08:21 | P.PN ---
Progress Note - Text Progress Note Date: 12/25/18 Patient was scheduled to have repeat left L4-5 and L5-S1 transforaminal epidural steroid injection, the first injection was done on 12/01/2018. The patient reports no significant benefit from this procedure. On discussion with the patient, we elected to not proceed with repeat procedure given no benefit from prior injection. On review of her records, it appears that she had significant relief [pain score reduced from 4-0] following first diagnostic lumbar medial branch block done in May 2018. Her second diagnostic block done in August 2018, the follow-up note reported no significant benefit. We will attempt a third diagnostic block to see if this provides patient relief. Patient was informed that this would be a diagnostic block only, and we would expect relief for a few hours up to a day. If she gets significant relief from this, we can bring her back for a lumbar RF. Given need for prior insurance authorizations, we elected to not proceed with the procedure today and we'll wait to get insurance authorization. We will call her to schedule this procedure. No procedure was done today. If patient does not obtain relief from third lumbar diagnostic medial branch block, we also discussed left SI joint injection as her pain is primarily located in her left buttock and lateral thigh, not past the knee.
== END ==
LOC: ORPAIN 06:19
PROVIDERS: ATTEND Anesthesiology
DX: M47.816 Spondylosis without myelopathy or radiculopathy, lumbar region (principal); Z53.8 Procedure and treatment not carried out for other reasons

== ENCOUNTER 2019-01-08 06:20 | Day surgery (SDC) | payer MEDICARE ==
[2019-01-07 09:02] VITALS: BMI 43.6
[~2019-01-08 06:20] MED LIST changes: -LACTATED RINGERS 1,000 ML IV ONE; +LACTATED RINGERS 1,000 ML IV SCH; -LIDOCAINE 1% 20 ML VIAL (10MG/ML) FOR IV START INTRADERMA ONE
[2019-01-08 06:45] VITALS: TEMP 97.4
--- NOTE | 2019-01-08 07:26 | P.PCN ---
Date of Procedure: 01/08/19 Procedure(s) Performed: Preoperative diagnoses: left sacroilitis Postoperative diagnoses: left sacroilitis. Procedure: left sacroiliac joint steroid injection under fluoroscopic guidance. Surgeon: Jose A Forbes MD Anesthesia: [2 mL of 1% lidocaine and IV sedation per hospital guidelines] Fluoroscopy was used for the procedure and fluoroscopic images were saved to the radiology portion of the patient's chart. EBL: None Procedure indication: The patient had a history of severe chronic low back pain, diagnosed with sacroiliitis unresponsive to conservative treatment. Procedure description: The patient was seen and identified in the preoperative holding area, risks and benefits and alternative of the procedure and possible complications discussed with the patient, and patient agreed with the preceding, patient signed the consent, an IV was started, and vital signs were monitored and were stable throughout the procedure, patient was placed in the prone position on table and the lumbosacral area was prepped and draped with a sterile fashion, vital signs were closely monitored during the procedure, the fluoroscopy camera was placed in the contralateral oblique view on the left sacroiliac joint and the lower part of the joint was identified . Then the skin and subcutaneous tissue was anesthetized using 2 mL of 1% lidocaine then a 22- gauge Quincke-type spinal needle advanced slowly under fluoroscopy and placed in the posterior and inferior border of the left sacroiliac joint, placement confirmed with AP and lateral view, and after appropriate needle placement confirmed and after negative aspiration for heme, 1 mL of Isovue 200 was injected revealing intra-articular spread. Then a solution consisting of 2 ml of ropivacaine 0.5% and 40 mg of Kenalog injected after negative aspiration, no paresthesia during the injection, no resistance to injection, and the needle was removed. Patient tolerated the procedure well without any complication. The patient was returned to supine position after the back was cleaned and a Band-Aid applied, the patient was transported to recovery room in stable condition and monitored for 30 minutes before being discharged home. The patient will follow up with the pain clinic in a few weeks
[2019-01-08] MEDS ORDERED: IV FLUID CONTINUATION 1,000 ML IV ONE ×2 (07:30)
[2019-01-08 07:48] VITALS: BP 124/81; PULSE 80; RESP 20
--- NOTE | 2019-01-08 07:55 | FL ---
EXAMINATION TYPE: FL guided pain mgmt statistic DATE OF EXAM: 01/08/2019 CLINICAL HISTORY: Left sacroiliac joint pain. TECHNIQUE: Fluoroscopy. COMPARISON: None. FINDINGS: Fluoroscopic guidance was provided during pain relief procedure performed by Dr. Forbes . A total of 4 seconds of fluoroscopic time was utilized during the procedure and two spot images are acq uired. Images acquired shows needle localization of the inferior aspects sacroiliac joint. IMPRESSION: As Above.
== END 2019-01-08 07:53 | disposition home or self-care (01) ==
LOC: ORPAIN 06:20
PROVIDERS: ATTEND Anesthesiology
DX: M46.1 Sacroiliitis, not elsewhere classified (principal); G89.29 Other chronic pain; M54.5 Low back pain
CPT/HCPCS: G0260; J2250; J3301; J3010; Q9966; 27096; 99152

== ENCOUNTER → 2019-02-05 | Outpatient (CLI) | payer MEDICARE ==
[2019-02-05 14:16] VITALS: RESP 16
[2019-02-05 14:28] VITALS: BP 125/91; PULSE 81
--- NOTE | 2019-02-05 15:45 | P.PAINPG ---
Subjective Progress Note Date: 02/05/19 This is a follow visit for this 78 years old female with a chronic history of severe low back pain, patient diagnosed with lumbar degenerative disc disease and lumbar spondylosis and sacroiliitis, she continued to have severe low back pain localized in the left buttock area with radiation to the posterior aspect of her left Thigh , she reported that the intensity of the pain interferes with her quality of life, she denies any motor or sensory deficit she denies any fever or night sweats but she denies any change in the bowel movement or urination, patient had multiple interventional pain procedures , all the procedure well to improve her pain and she had diagnostic medial branch block lumbar area and the first one was positive she had good relief, and the second one was negative for any change in her pain level, and the house insurance refused to approve the repeat diagnostic medial branch block, patient had sacroiliac joint steroid injection without any benefit and patient had left-sided transforaminal epidural steroid injection without any benefit. Objective - Vital Signs Vital signs: Vital Signs Temp Pulse 81 02/05/19 14:17 Resp 16 02/05/19 14:17 BP 125/91 02/05/19 14:17 Pulse Ox 92 L 02/05/19 14:17 Intake & Output 02/04/19 02/05/19 02/05/19 18:59 06:59 18:59 Weight 101.605 kg - Exam Physical Examinations : -Constitutiona : Cooperative , not in acute distress . -HEENT : nech : supple , no Lymphadenopathy , normal thyroid size . eyes : no ptosis , no icterus, no photophobia . ENT : normal of hearing , normal oropharynx , no Thrush . - Respiratory : Chest clear to auscultations Bilaterally , no wheezing , no Rhonchi . - Cardiovascula : regular rate and rhythem , S1 , S2 , no S3 , no S4. - Gastrointestina : abdomen soft no tenderness , bowel sounds , no organomegally . - Genitourinary : Defferred . - neurologic : Cranial nerve II to XII intact , no focal neurological deffecit . -psychatric : alert , oriented X 3 , appropriate affect , intact judgment and insight . -Lymphatic : no Lymphadenopathy . - musculoskeltal : Lumber spine moter stegnth lower extremities ,thigh and legs 5/5 Right side , 5/5 Left side deep tendon reflexes : normal Knee Jerk , normal ankle Jerk lumber facet Loading Test positive on the left side Range of motion of the lumbar spine Flexion 60 degrees, extension 30 degrees strait leg raising test = negative bilaterally Fabere test negative bilaterally No tenderness over the Sacroiliac joint on the R and L sides MRI of the lumbar spine done 03/30/2017 L2-3 bulging disc and facet degeneration at L3 4 bulging disc and facet degeneration and foraminal narrowing L4-L5 facet degeneration and L5-S1 facet degeneration, and L2 3 L3 4 spondylolisthesis . Assessment and Plan Plan: Assessment and plan= chronic severe low back pain secondary to multifactorial causes lumbar degenerative disc disease lumbar spondylosis with lumbar facet arthropathy, patient failed interventional pain management, patient had good result after the diagnostic medial branch block lumbar area the first one was positive on the second diagnostic medial branch block was negative for any change in her pain , and patient supposed to have surgery diagnostic medial branch block to confirm the diagnosis but the third one was not approved by her health insurance , and it would not be approved before June 2019 ,and she reported that the current medication is not helping enough to control her. I recommend to increase the Neurontin dose to 300 mg 3 times a day, patient could benefit from physical therapy and possible TENS unit trial, patient can be seen again in June 2019 , then we could reevaluate for possible diagnostic medial branch blocks and possible RFA, Time with Patient: Less than 30 PQRS Measure Charge Sheet Measure #130: Documentation of Current Meds in Medical Chart: Patient's medications documented in chart Measure #226: Tobacco Use: Screen & Cessation Intervention: Pt not a tobacco user Measure #111: Pneumonia Vaccination: Pneumococcal vaccine administered or previously received Measure #47: Advance Care Plan: Advance care planning discussed & documented, pt chose/unable to give Measure #412: Opioid Treatment Agreement: No documentation of signed opioid treatment agreement Measure #408: Opioid Therapy Follow-up Evaluation: Patient had NO f/u eval minimum every 3 months during opioid therapy Measure #317: Preventitive Care & Scrn High Bld Press & F/U: Normal blood pressure, f/u not required Measure #128: Body Mass Index (BMI) Screening & Follow-up: BMI documented ABOVE normal parameters - f/u documented Measure #131: Pain Assessment & Follow-up: Pain positive & plan documented, Follow-up scheduled Measure #431: Unhealthy Alcohol Use Preventative Care & Scrn: Patient not identified as an unhealthy alcohol user PQRS Narrative: Smoking Status Former smoker Narcotic Agreement Date Signed 11/05/18 Blood Pressure 125/91 Pain Intensity [Left Upper Leg 8 ] Scale Used Numeric (1 - 10) Hx Alcohol Use (MH) No Home Medications: Ambulatory Orders Budesonide-Formot 160-4.5 Mcg [Symbicort 160-4.5 Mcg Inhaler] 2 puff INHALATION BID 04/02/17 Carboxymethylcellulose Sodium [Refresh Tears] 1 drop LEFT EYE DAILY 04/02/17 Cranberry Fruit Extract [Cranberry] 500 mg PO BID 04/02/17 Furosemide [Lasix] 20 mg PO DAILY 04/02/17 Ipratropium/Albuterol Sulfate [Combivent Respimat Inhaler] 1 puff INHALATION QID PRN 04/02/17 Ketoconazole 2% Cream [Nizoral 2%] 1 applic TOPICAL DAILY 04/02/17 Multivitamins, Thera [Multivitamin (formulary)] 1 tab PO DAILY 04/02/17 Nabumetone [Relafen] 750 mg PO BID 04/02/17 Myrtle-3 Fatty Acids [Myrtle-3] 1,200 mg PO DAILY 04/02/17 Fluticasone Propionate [Flovent Diskus] 50 mcg INHALATION DAILY 03/24/18 Polyvinyl Alcohol/Povidone [Freshkote] 1 applic RIGHT EYE BID 03/24/18 Biotin 5 mg PO DAILY 10/07/18 Gabapentin [Neurontin] 300 mg PO BID 11/05/18 Hydrochlorothiazide 25 mg PO DAILY 11/05/18 Fluticasone Nasal [place] [Flonase Nasal [place]] 1 spray NASAL DAILY 12/25/18 Controlled Substance Measures - Controlled Substance Measures Is patient prescribed a controlled substance at discharge?: Yes When asked, does pt state using other controlled substances?: No If prescribed controlled substance>3 days was MAPS reviewed?: Yes If Rx opioid, was Start Talking consent form obtained?: Yes If opioid is for acute pain is fill amount 7 days or less?: No Was information provided regarding opioid addiction?: Yes
== END | disposition home or self-care (01) ==
LOC: PNWHC3 13:16
PROVIDERS: ATTEND Specialist
DX: G89.29 Other chronic pain (principal); M51.36 Other intervertebral disc degeneration, lumbar region; M47.816 Spondylosis without myelopathy or radiculopathy, lumbar region; M46.96 Unspecified inflammatory spondylopathy, lumbar region; Z87.891 Personal history of nicotine dependence; Z79.51 Long term (current) use of inhaled steroids; Z79.899 Other long term (current) drug therapy
CPT/HCPCS: 99211

== ENCOUNTER → 2019-05-01 | Outpatient (CLI) | payer MEDICARE | END | disposition home or self-care (01) | LOC: CPPFTMAIN 13:03 | PROVIDERS: ATTEND Internal Medicine Critical Care Medicine | DX: J44.9 Chronic obstructive pulmonary disease, unspecified (principal); R94.2 Abnormal results of pulmonary function studies | CPT/HCPCS: 94060; 94726; 94729 ==

== ENCOUNTER 2023-09-26 15:31 | Emergency (ER) | payer MEDICARE ==
[2023-09-26 15:44] VITALS: RESP 18
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
[2023-09-26 17:37] VITALS: BP 176/69; PULSE 71; TEMP 98.4
== END 2023-09-26 17:21 | disposition home or self-care (01) ==
LOC: EC 15:31
DX: S80.11XA Contusion of right lower leg, initial encounter (principal); V89.2XXA Person injured in unspecified motor-vehicle accident, traffic, initial encounter; Y92.411 Interstate highway as the place of occurrence of the external cause
CPT/HCPCS: 99284

== ENCOUNTER → 2024-01-16 | Outpatient (CLI) | payer MEDICARE ==
[2024-01-16 18:19] LABS: HCT 45.7 % (37.2-46.3); HGB 14.5 g/dL (12.0-15.0); MCHC 31.7 g/dL (32.0-37.0); MCV 94.6 FL (80.0-97.0); Mean Platelet Volume 11.5 FL (9.5-12.2); NRBC Per 100 WBC 0 X 10*3/uL (0.00-0.01); Platelet Count 155 X 10*3/uL (140-440); RBC 4.83 X 10*6/uL (4.10-5.20); RDW 15.3 % (11.5-14.5); WBC 4.74 X 10*3/uL (4.50-10.00)
[2024-01-16 23:38] LABS: Blood Urea Nitrogen 14.4 mg/dL (9.0-27.0); Calcium 8.7 mg/dL (8.7-10.3); Carbon Dioxide 30.3 mmol/L (21.6-31.8); Chloride 103 mmol/L (96-109); Chol/HDL Ratio 2.85 Ratio; Glucose 98 mg/dL (70-110); LDL Cholesterol,Calculated 76.4 mg/dL (0.0-131.0); NT-Pro-B-Type Natriuretic Pept 2235 pg/mL (0-450); Potassium 3.8 mmol/L (3.5-5.5); Sodium 147 mmol/L (135-145)
== END | disposition home or self-care (01) ==
LOC: LABWHC1 11:37
PROVIDERS: ATTEND Internal Medicine
DX: I11.0 Hypertensive heart disease with heart failure (principal); I50.9 Heart failure, unspecified; E78.5 Hyperlipidemia, unspecified
CPT/HCPCS: 36415; 80048; 80061; 83880; 85027

== ENCOUNTER → 2024-09-18 | Day surgery (SDC) | payer MEDICARE ==
[~2024-09-18] MED LIST changes: -LACTATED RINGERS 1,000 ML IV SCH; +LIDOCAINE 1% INJ 10MG/ML (20 ML MDV) ONE; +PROPOFOL 10 MG/ML 20 ML VIAL IV ONE
[2024-09-18 12:25] VITALS: RESP 18; TEMP 97
[2024-09-18 12:35] LABS: Glucose,Whole Blood 89 mg/dL (70-110)
[2024-09-18] MEDS: SODIUM CHLORIDE 0.9% 500 ML 500 ML IV ONE (12:35)
[2024-09-18] MEDS: BENZOCAINE SPRAY 1 EACH MUCOUS MEM ONE (12:55)
[2024-09-18 13:10] LABS: African American GFR (CKD) 47 (>60 ml/min/1.73 sqM); Anion Gap 8 mmol/L; Blood Urea Nitrogen 23 mg/dL (7-17); Calcium 8.9 mg/dL (8.4-10.2); Carbon Dioxide 32 mmol/L (22-30); Chloride 99 mmol/L (98-107); Glucose 94 mg/dL (74-99); Non-African American GFR(CKD) 41 (>60 ml/min/1.73 sqM); Potassium 3.5 mmol/L (3.5-5.1); Sodium 139 mmol/L (137-145)
--- NOTE | 2024-09-18 13:16 | P.TEE ---
Description of Procedure(s): Procedure performed: Transesophageal Echocardiogram with color flow doppler, pulsed wave doppler and continuous wave doppler, synchronized cardioversion Moderate conscious sedation: Moderate conscious sedation was supplied by anesthesia, see separate report. Complications: none Indications: Atrial flutter PROCEDURE: After the risks, benefits and alternatives of the above mentioned procedure was explained in detail with the patient, informed consent was obtained. Patient was brought to the lab in a fasting state. Patient was given sedation by anesthesia, see separate report. The throat was sprayed with Hurricane to anesthetize the throat. A lubricated Omni probe was then introduced into the esophagus and stomach and multiple views were obtained. 2D echo with color flow doppler, pulsed wave doppler and continuous wave doppler was utilized. Agitated saline bubbles were injected to assess for any intra- atrial shunt. The probe was then removed. There was no thrombus noted and therefore patient underwent synchronized cardioversion x 1 with 200J with resultant sinus rhythm. Patient tolerated the procedure well. Patient was transferred to the post procedure area in stable and satisfactory condition. FINDINGS: 1. The aortic valve is tricuspid and function normally. 2. The mitral valve appears be normal with mild regurgitation and mild to moderate mitral annular calcification. 3. Tricuspid valve appears to be normal with moderate tricuspid regurgitation. 4. The interatrial septum is intact. No evidence of PFO. 5. Left atrial appendage is free of clot. There is artifact crossing into the wall of the LA 6. Left ventricular EF 55%
[2024-09-18 14:36] VITALS: PULSE 63
[2024-09-18 14:44] VITALS: BP 121/57
== END ==
LOC: OR 11:41
PROVIDERS: ATTEND Internal Medicine
DX: I08.1 Rheumatic disorders of both mitral and tricuspid valves (principal); I48.0 Paroxysmal atrial fibrillation; I50.32 Chronic diastolic (congestive) heart failure; I48.92 Unspecified atrial flutter; J44.9 Chronic obstructive pulmonary disease, unspecified; Z87.891 Personal history of nicotine dependence; Z79.51 Long term (current) use of inhaled steroids; Z79.01 Long term (current) use of anticoagulants; Z79.899 Other long term (current) drug therapy
CPT/HCPCS: 93312; 93320; 93325; 92960; 80048; J2003; J2704